=== PATIENT | female | born 1950 | race Two or more races ===

== ENCOUNTER 2020-03-14 19:56 | Emergency (ER) | payer MEDICARE ==
[~2020-03-14] VITALS: Ht 170.2 cm; Wt 115.7 kg
[2020-03-14 20:06] VITALS: BP 118/66
== END 2020-03-14 23:52 | disposition home or self-care (01) ==
LOC: ER 20:06
DX: M62.838 Other muscle spasm (principal); R51 Headache; M54.2 Cervicalgia; M25.521 Pain in right elbow; R42 Dizziness and giddiness; E11.9 Type 2 diabetes mellitus without complications; I10 Essential (primary) hypertension; W18.39XA Other fall on same level, initial encounter; Y93.89 Activity, other specified; Y92.89 Other specified places as the place of occurrence of the external cause; Y99.8 Other external cause status
CPT/HCPCS: 70450; 72125; 73070; 73560

== ENCOUNTER 2021-11-06 06:15 | Inpatient (IN) | payer MEDICARE ==
[~2021-11-06] VITALS: Ht 160 cm; Wt 122.5 kg
[2021-11-06] MEDS ORDERED: NITROGLYCERIN 0.4 MG SL TAB SL ONE (06:45)
[2021-11-06 07:38] LABS: Basophils # (auto) 0 10 ^3/uL (0-0.2); Basophils % (auto) 0.4 % (0.0-2.0); Eosinophils # (auto) 0.1 10 ^3/uL (0-0.8); Eosinophils % (auto) 1.4 % (0.0-7.0); Hematocrit 37.3 % (36.0-46.0); Hemoglobin 12.3 g/dL (12.2-16.2); Lymphocytes # (auto) 1.5 10 ^3/uL (0.4-5.4); Lymphocytes % (auto) 15.9 % (10.0-50.0); Mean Corpuscular Hemoglobin 27.8 pg (28.0-32.0); Mean Corpuscular Hgb Conc. 33.1 g/dL (32.0-36.0); Monocytes # (auto) 0.6 10 ^3/uL (0-1.3); Monocytes % (auto) 6.7 % (0.0-12.0); Neutrophils # (auto) 7.4 10 ^3/uL (1.6-8.6); Neutrophils % (auto) 75.6 % (37.0-80.0); Nucleated Red Blood Cells % 0.2 %; Red Blood Cells 4.44 10^6/uL (4.0-5.20); Red Cell Distribution Width 15.5 % (11.8-14.3); White Blood Cell 9.7 10^3/uL (4.4-10.8)
[2021-11-06 07:52] LABS: Albumin 3.2 g/dL (3.4-5.0); Calcium 8.5 mg/dL (8.5-10.1); Potassium 4.4 mmol/L (3.5-5.1)
[2021-11-06 07:57] LABS: INR 0.94 (0.9-1.15); Partial Thromboplastin Time 25.9 sec (23.6-33.0)
[2021-11-06 08:09] LABS: BUN/Creatinine Ratio 18.9; Bilirubin, Total 0.4 mg/dL (0.2-1.0)
[2021-11-06] MEDS ORDERED: DEXTROSE (50%) 50ML SYRG IV PRN (11:00)
[2021-11-06] MEDS ORDERED: MORPHINE SULFATE INJ 2 MG/ml SYRG IV PRN ×2 (11:00→14:00)
[2021-11-06] MEDS ORDERED: NITROGLYCERIN 0.4 MG SL TAB SL PRN (11:00)
[2021-11-06 12:15] LABS: Urine Blood Negative /uL (Negative); Urine Specific Gravity 1.022 (1.001-1.035)
[2021-11-06 12:17] LABS: Urine Bacteria MANY /hpf (None Seen)
[2021-11-06] MEDS: ACCU-CHEK COMFORT CURVE STRIP VI SCH ×3 (12:18→22:34)
[2021-11-06] MEDS: InsuLIN REG 1unit/0.01ml Soln (100units/ml) SC SCH ×3 (12:22→22:35)
[2021-11-06] MEDS ORDERED: hydrALAZINE HCL 20 MG/ML VL IV PRN (14:00)
[2021-11-06] MEDS ORDERED: PANTOPRAZOLE 40 MG/10 ML VIAL INJ IV ONE (14:00)
[2021-11-06] MEDS ORDERED: ONDANSETRON HCL 4 MG/2 ML VIAL IV PRN (14:00)
[2021-11-06] MEDS ORDERED: LORazepam 0.5 MG TAB PO PRN (14:00)
[2021-11-06] MEDS ORDERED: DOCUSATE SOD 100 MG CAP PO PRN (14:00)
[2021-11-06] MEDS ORDERED: METOPROLOL SUCCINATE XL 50 MG TAB PO ONE (14:15)
[2021-11-06] MEDS ORDERED: cefTRIAXone 1GM/50ML D5W 50 ML IV ONE (14:15)
[2021-11-06] MEDS ORDERED: AZITHROMYCIN 500MG/ 250ML 250 ML IV ONE (14:15)
[2021-11-06 15:25] VITALS: BP 149/85
[2021-11-06] MEDS: SODIUM CHLORIDE 0.9% 1,000 ML IV SCH (15:47)
[2021-11-06 15:59] LABS: Magnesium 1.6 mg/dL (1.6-2.6); Phosphorus 2.1 mg/dL (2.5-4.90)
[2021-11-06 17:00] VITALS: BP 148/72
[2021-11-06 20:15] LABS: INR 0.97 (0.9-1.15)
[2021-11-06 22:00] VITALS: BP 116/80
[2021-11-06] MEDS: ATORVASTATIN 20 MG TAB PO SCH (22:36)
[2021-11-07 05:00] VITALS: BP_SYST 141; BP_SYST 148; BP_DIAS 53; BP_DIAS 83
[2021-11-07] MEDS: SODIUM CHLORIDE 0.9% 1,000 ML IV SCH ×2 (06:21→23:20)
[2021-11-07 06:23] LABS: Albumin 3.1 g/dL (3.4-5.0); Calcium 8.8 mg/dL (8.5-10.1); INR 0.95 (0.9-1.15); Magnesium 1.6 mg/dL (1.6-2.6); Partial Thromboplastin Time 25.2 sec (23.6-33.0); Potassium 3.9 mmol/L (3.5-5.1); Uric Acid 5.2 mg/dL (2.6-6.0)
[2021-11-07 06:27] LABS: Basophils # (auto) 0 10 ^3/uL (0-0.2); Basophils % (auto) 0.4 % (0.0-2.0); Eosinophils # (auto) 0.1 10 ^3/uL (0-0.8); Hematocrit 37.5 % (36.0-46.0); Hemoglobin 12.6 g/dL (12.2-16.2); Lymphocytes # (auto) 2.4 10 ^3/uL (0.4-5.4); Lymphocytes % (auto) 31.8 % (10.0-50.0); Mean Corpuscular Hemoglobin 28.1 pg (28.0-32.0); Mean Corpuscular Hgb Conc. 33.6 g/dL (32.0-36.0); Mean Corpuscular Volume 83.6 fL (80.0-100.0); Monocytes # (auto) 0.6 10 ^3/uL (0-1.3); Monocytes % (auto) 7.6 % (0.0-12.0); Neutrophils # (auto) 4.4 10 ^3/uL (1.6-8.6); Neutrophils % (auto) 58.2 % (37.0-80.0); Red Blood Cells 4.49 10^6/uL (4.0-5.20); Red Cell Distribution Width 15.1 % (11.8-14.3); White Blood Cell 7.5 10^3/uL (4.4-10.8)
[2021-11-07] MEDS: InsuLIN REG 1unit/0.01ml Soln (100units/ml) SC SCH ×4 (06:40→21:30)
[2021-11-07 06:44] LABS: BUN/Creatinine Ratio 16.9; Bilirubin, Total 0.4 mg/dL (0.2-1.0); CRP High Sensitivity 1.12 mg/dL (< 0.3); Phosphorus 3.5 mg/dL (2.5-4.90); Total Protein 6.7 g/dL (6.4-8.2)
[2021-11-07] MEDS: ACCU-CHEK COMFORT CURVE STRIP VI SCH ×4 (06:55→21:23)
[2021-11-07] MEDS ORDERED: INSLANTI SC (07:07)
[2021-11-07] MEDS ORDERED: ADENOSINE 105 MG in GIVE UN-DILUTED 0 ML IV ONE (08:15)
[2021-11-07 09:07] VITALS: BP 146/97
[2021-11-07] MEDS ORDERED: PANTOPRAZOLE 40 MG/10 ML VIAL INJ IV SCH (10:00)
[2021-11-07] MEDS: HYDROcodone-ACET 5/325MG TAB PO PRN (11:16)
[2021-11-07] MEDS: BENAZEPRIL HCL 10 MG TAB PO SCH (11:17)
[2021-11-07] MEDS: ASPirin 81 mg TAB PO SCH (11:19)
[2021-11-07] MEDS: METOPROLOL SUCCINATE XL 50 MG TAB PO SCH (11:19)
[2021-11-07] MEDS: cefTRIAXone 1GM/50ML D5W 50 ML IV SCH (11:20)
[2021-11-07] MEDS: ENOXAPARIN SOD 40 MG/0.4 ML SYRINGE SC SCH (11:21)
[2021-11-07] MEDS: AZITHROMYCIN 500MG/ 250ML 250 ML IV SCH (12:24)
[2021-11-07 12:50] VITALS: BP 134/82
[2021-11-07 16:49] VITALS: BP 119/68
[2021-11-07] MEDS ORDERED: VANCOMYCIN PER PHARMACY 0 MG IV SCH (18:30)
[2021-11-07] MEDS ORDERED: VANCOMYCIN 1GM/250ML 250 ML IV ONE (18:45)
[2021-11-07] MEDS: ATORVASTATIN 20 MG TAB PO SCH (21:21)
[2021-11-07] MEDS: SUCRALFATE 1 GM/10 ML ORAL SUSP PO SCH (21:23)
[2021-11-07] MEDS: PANTOPRAZOLE 40 MG TAB PO SCH (21:23)
[2021-11-07 22:00] VITALS: BP 141/57
[2021-11-07 22:57] LABS: Potassium 4.5 mmol/L (3.5-5.1)
[2021-11-08 05:00] VITALS: BP 141/53
[2021-11-08] MEDS: ACCU-CHEK COMFORT CURVE STRIP VI SCH ×6 (06:20→23:43)
[2021-11-08] MEDS: InsuLIN REG 1unit/0.01ml Soln (100units/ml) SC SCH ×6 (06:20→23:44)
[2021-11-08] MEDS: SUCRALFATE 1 GM/10 ML ORAL SUSP PO SCH ×4 (06:23→21:40)
[2021-11-08] MEDS ORDERED: VANCOMYCIN 1GM/250ML 250 ML IV SCH (07:00)
[2021-11-08] MEDS: cefTRIAXone 1GM/50ML D5W 50 ML IV SCH (08:59)
[2021-11-08 09:00] VITALS: BP 144/62
[2021-11-08] MEDS: ASPirin 81 mg TAB PO SCH (09:00)
[2021-11-08] MEDS: BENAZEPRIL HCL 10 MG TAB PO SCH (09:01)
[2021-11-08] MEDS: PANTOPRAZOLE 40 MG TAB PO SCH ×2 (09:02→21:40)
[2021-11-08] MEDS: METOPROLOL SUCCINATE XL 50 MG TAB PO SCH (09:02)
[2021-11-08] MEDS: ENOXAPARIN SOD 40 MG/0.4 ML SYRINGE SC SCH (09:03)
[2021-11-08] MEDS: AZITHROMYCIN 500MG/ 250ML 250 ML IV SCH (09:55)
[2021-11-08] MEDS ORDERED: DEXTROSE (50%) 50ML SYRG IV PRN (12:00)
[2021-11-08 14:04] VITALS: BP 114/67
[2021-11-08] MEDS: SODIUM CHLORIDE 0.9% 1,000 ML IV SCH (16:00)
[2021-11-08 17:00] VITALS: BP 147/71
[2021-11-08] MEDS: ATORVASTATIN 20 MG TAB PO SCH (21:40)
[2021-11-08] MEDS: HYDROcodone-ACET 5/325MG TAB PO PRN (21:41)
[2021-11-08 22:00] VITALS: BP 129/58
[2021-11-09] MEDS: ACCU-CHEK COMFORT CURVE STRIP VI SCH ×5 (04:28→20:14)
[2021-11-09] MEDS: InsuLIN REG 1unit/0.01ml Soln (100units/ml) SC SCH ×5 (04:30→20:37)
[2021-11-09 05:00] VITALS: BP 126/70
[2021-11-09] MEDS: SUCRALFATE 1 GM/10 ML ORAL SUSP PO SCH ×4 (06:25→22:18)
[2021-11-09] MEDS: cefTRIAXone 1GM/50ML D5W 50 ML IV SCH (08:49)
[2021-11-09 09:00] VITALS: BP 119/65
[2021-11-09] MEDS: ASPirin 81 mg TAB PO SCH (09:35)
[2021-11-09] MEDS: BENAZEPRIL HCL 10 MG TAB PO SCH (09:35)
[2021-11-09] MEDS: PANTOPRAZOLE 40 MG TAB PO SCH ×2 (09:37→22:18)
[2021-11-09] MEDS: METOPROLOL SUCCINATE XL 50 MG TAB PO SCH (09:37)
[2021-11-09] MEDS: ENOXAPARIN SOD 40 MG/0.4 ML SYRINGE SC SCH (09:38)
[2021-11-09] MEDS: AZITHROMYCIN 500MG/ 250ML 250 ML IV SCH (10:30)
[2021-11-09] MEDS: SODIUM CHLORIDE 0.9% 1,000 ML IV SCH (12:53)
[2021-11-09 13:00] VITALS: BP 121/64
[2021-11-09 16:35] VITALS: BP 140/59
[2021-11-09 22:00] VITALS: BP 127/50
[2021-11-09] MEDS: ATORVASTATIN 20 MG TAB PO SCH (22:18)
[2021-11-10] MEDS: ACCU-CHEK COMFORT CURVE STRIP VI SCH ×4 (00:24→12:03)
[2021-11-10] MEDS: InsuLIN REG 1unit/0.01ml Soln (100units/ml) SC SCH ×4 (00:26→12:01)
[2021-11-10] MEDS: SODIUM CHLORIDE 0.9% 1,000 ML IV SCH (01:20)
[2021-11-10 05:00] VITALS: BP 114/76
[2021-11-10] MEDS: SUCRALFATE 1 GM/10 ML ORAL SUSP PO SCH ×2 (06:44→11:47)
[2021-11-10 07:41] VITALS: BP 119/36
[2021-11-10] MEDS: HYDROcodone-ACET 5/325MG TAB PO PRN (08:07)
[2021-11-10] MEDS: AZITHROMYCIN 500MG/ 250ML 250 ML IV SCH ×2 (09:22→10:00)
[2021-11-10] MEDS: cefTRIAXone 1GM/50ML D5W 50 ML IV SCH (09:22)
[2021-11-10] MEDS: ASPirin 81 mg TAB PO SCH (09:23)
[2021-11-10] MEDS: ENOXAPARIN SOD 40 MG/0.4 ML SYRINGE SC SCH (09:23)
[2021-11-10] MEDS: PANTOPRAZOLE 40 MG TAB PO SCH (09:23)
[2021-11-10] MEDS: ATORVASTATIN 20 MG TAB PO SCH (09:23)
[2021-11-10] MEDS: METOPROLOL SUCCINATE XL 50 MG TAB PO SCH (09:29)
[2021-11-10] MEDS ORDERED: LEVO750T8 PO (09:39)
[2021-11-10] MEDS ORDERED: PANT40T PO (09:39)
[2021-11-10] MEDS ORDERED: SUCR1TAB PO (09:39)
[2021-11-10] MEDS: BENAZEPRIL HCL 10 MG TAB PO SCH (10:00)
[2021-11-10 12:44] VITALS: BP 119/56
[2021-11-10 13:00] VITALS: BP 120/46
== END 2021-11-10 15:05 | disposition home or self-care (01) | DRG 302 ==
LOC: ER 06:15 → EDBD 06:15 → TELE 10:47 → TELE-EAST 13:16
PROVIDERS: ADMIT Hospitalist; ATTEND Family Medicine
DX: I25.10 Atherosclerotic heart disease of native coronary artery without angina pectoris (principal); J18.9 Pneumonia, unspecified organism; N39.0 Urinary tract infection, site not specified; E44.0 Moderate protein-calorie malnutrition; R78.81 Bacteremia; Z68.42 Body mass index [BMI] 45.0-49.9, adult; I24.9 Acute ischemic heart disease, unspecified; E66.01 Morbid (severe) obesity due to excess calories; E78.5 Hyperlipidemia, unspecified; I10 Essential (primary) hypertension; K76.0 Fatty (change of) liver, not elsewhere classified; B95.7 Other staphylococcus as the cause of diseases classified elsewhere; R12 Heartburn; K21.9 Gastro-esophageal reflux disease without esophagitis; E11.21 Type 2 diabetes mellitus with diabetic nephropathy; E11.40 Type 2 diabetes mellitus with diabetic neuropathy, unspecified; Z20.822 Contact with and (suspected) exposure to COVID-19; Z79.4 Long term (current) use of insulin; Z85.3 Personal history of malignant neoplasm of breast; Z90.11 Acquired absence of right breast and nipple; Z92.21 Personal history of antineoplastic chemotherapy; Z90.49 Acquired absence of other specified parts of digestive tract; Z92.3 Personal history of irradiation; Z88.5 Allergy status to narcotic agent; Z91.041 Radiographic dye allergy status; E11.65 Type 2 diabetes mellitus with hyperglycemia
CPT/HCPCS: 36415; 71045; 74176; 78452; 78582; 80048; 80053; 80061; 81001; 82550; 82728; 82962; 83036; 83615; 83690; 83735; 83880; 84100; 84443; 84484; 84550; 85025; 85379; 85610; 85652; 85730; 86141; 87040; 87077; 87086; 87186; 93005; 93017; 93306; 93970; 99291; C9113; G0378; J0153; J0696; J1815